=== PATIENT | male | born 1995 | race Caucasian/White ===

== ENCOUNTER 2016-10-24 16:32 | Emergency (ER) | payer OTHER ==
--- NOTE | 2016-10-24 17:32 | RAD ---
INDICATION: Left index finger amputation. TECHNIQUE: 3 views of the left index finger were obtained. FINDINGS: There is extensive soft tissue swelling and soft tissue defects present adjacent to the distal phalanx. No fracture is seen. Joint spaces appear maintained. IMPRESSION: EXTENSIVE SOFT TISSUE INJURY, NO FRACTURE IS SEEN.
--- NOTE | 2016-10-24 17:46 | ED ---
Laceration/Wound HPI - HPI Summary HPI Summary: 21M presents with left finger avulsion s/p cutting it with a knife today at work. He bought the part of his finger in a bag with wet gauze. The area is actively bleeding. He denies any decrease in ROM. His tetanus was within the last 5 years. He is right handed. - History of Current Complaint Stated Complaint: LT FINGER LAC Time Seen by Provider: 10/24/16 17:11 Pain Intensity: 8 - Additional Pertinent History Primary Care Physician: AMANDA - Allergy/Home Medications Allergies/Adverse Reactions: Allergies Allergy/AdvReac Type Severity Reaction Status Date / Time Penicillins Allergy Hives Verified 07/08/16 02:51 PMH/Surg Hx/FS Hx/Imm Hx Endocrine/Hematology History: Reports: Other Endocrine/Hematological Disorders - babesiosis Denies: Hx Diabetes Cardiovascular History: Denies: Hx Hypertension History: Denies: Hx Renal Disease Musculoskeletal History: Reports: Hx Orthopedic Injury - Left hand fx in 2010 - Surgical History Surgery Procedure, Year, and Place: appendectomy age 7 Infectious Disease History: No Infectious Disease History: Denies: Hx Clostridium Difficile, Hx Hepatitis, Hx Human Immunodeficiency Virus (HIV), Hx of Known/Suspected MRSA, Hx Shingles, Hx Tuberculosis, Hx Known/ Suspected VRE, Hx Known/Suspected VRSA, History Other Infectious Disease, Traveled Outside the [place] in Last 30 Days - Family History Known Family History: Negative: Cardiac Disease, Hypertension, Diabetes - Social History Alcohol Use: None Substance Use Type: Reports: None Substance Use Comment - Amount & Last Used: Drug [facility] Smoking Status (MU): Heavy Every Day Tobacco Smoker Review of Systems Negative: Fever Negative: Chest Pain Negative: Shortness Of Breath Positive: Other - avulsion of left index finger All Other Systems Reviewed And Are Negative: Yes Physical Exam Triage Information Reviewed: Yes Vital Signs On Initial Exam: Initial Vitals Temp Pulse Resp BP Pulse Ox 98.2 F 81 20 145/78 98 10/24/16 16:34 10/24/16 16:34 10/24/16 16:34 10/24/16 16:34 10/24/16 16:34 Vital Signs Reviewed: Yes Appearance: Positive: Well-Appearing Skin: Positive: Warm, Dry, Other - 3 cm by 2 cm avulsion involving distal tip of left index finger and distal part of nail that is actively bleeding, no exposed bone noted Head/Face: Positive: Normal Head/Face Inspection Eyes: Positive: Normal, Conjunctiva Clear ENT: Positive: Normal ENT inspection, Pharynx normal, TMs normal Respiratory/Lung Sounds: Positive: Clear to Auscultation, Breath Sounds Present Cardiovascular: Positive: Normal, RRR Musculoskeletal: Positive: Strength/ROM Intact - of left index finger, Other - good pulse Procedures - Laceration/Wound Repair 1 Location: Other - avulsion of left index finger Description: Irregular Anesthesia: Local, 1.0% Length, Depth and Shape: 2 by 3cm avulsion of left index finger reapproximated the avulsion piece of skin and reattached with chromic gut Betadine Prep?: Yes Irrigated w/ Saline (ccs): 200 Laceration/Wound Explored: clean, no foreign body removed Closure: Single Layer Debridement: minimal Suture Type: Chromic Number of Sutures: 8 Layer Closure?: No Sterile Dressing Applied?: No - pressure dressing applied Diagnostics - Vital Signs Vital Signs Temp Pulse Resp BP Pulse Ox 10/24/16 16:34 98.2 F 81 20 145/78 98 - Laboratory Lab Statement: Any lab studies that have been ordered have been reviewed, and results considered in the medical decision making process. - Radiology finger Xray Interpretation: No Acute Changes - FINDINGS: There is extensive soft tissue swelling and soft tissue defects present adjacent to the distal phalanx. No fracture is seen. Joint spaces appear maintained. IMPRESSION: EXTENSIVE SOFT TISSUE INJURY, NO FRACTURE IS SEEN. Radiology Interpretation Completed By: Radiologist Laceration Repair Course/Dx - Course Course Of Treatment: 21M presents with left index finger avulsion and he brought the piece with him. discussed with dr black and will try and reattach it to provide a protect barrier. 2 by 3cm avulsion of left index finger reapproximated the avulsion piece of skin and reattached with chromic gut 8 sutures, warned that might not take and to follow up with PCP in 7 days, placed on bactrim due to PCN allergy and replacing avulsed part of finger, patient agrees with plan - Differential Dx Differental Diagnoses: Abrasion, Avulsion, Laceration - Clinical Impression Provider Diagnoses: avulsion left index finger Discharge - Discharge Plan Condition: Good Disposition: HOME Prescriptions: Sulfamethox/Trimethoprim DS* [Bactrim DS 800/160 TAB*] 1 tab PO BID #20 tab Patient Education Materials: Care For Your Absorbable Stitches (ED) Referrals: Naresh Vargas MD [Primary Care Provider] - Additional Instructions: Take antibiotic twice a day for 10 days Take Tylenol or ibuprofen every 6 hours for pain Keep compression dressing on area for 48 hours Keep area covered Stitches will dissolve on their own, area might not take Follow up with primary within 7 days Return to ED if develop signs of infection such as fever, spreading redness, or any new or worsening symptoms Images - Images Hands: 1 - avuslion of left index finger
[2016-10-24 19:27] VITALS: BP 136/78
== END 2016-10-24 19:27 | disposition home or self-care (01) ==
LOC: ED 16:32
DX: S61.211A Laceration without foreign body of left index finger without damage to nail, initial encounter (principal); W26.0XXA Contact with knife, initial encounter; Y93.9 Activity, unspecified; Y92.9 Unspecified place or not applicable; Y99.9 Unspecified external cause status
CPT/HCPCS: 12002; 73140; 99281

== ENCOUNTER → 2017-04-17 14:55 | Emergency (ER) | payer OTHER ==
[2017-04-17 15:01] VITALS: BP 136/93
[2017-04-17 15:39] LABS: Urine Bilirubin Negative (Negative); Urine Glucose Negative (Negative); Urine Nitrite Negative (Negative)
--- NOTE | 2017-04-17 16:07 | RAD ---
Indication: 26 hours LEFT testicular pain. Comparison: No relevant prior exams available on the [facility] PACS for comparison. Technique: Scrotal ultrasound. Report: Normal echotexture 4.4 x 2.6 x 3.3 cm RIGHT testicle and 4.1 x 2.3 x 3.1 cm LEFT testicle. Normal range testicular vascularity bilaterally. No focal intratesticular lesions evident. Mildly hyperemic 1.1 x 1.3 cm RIGHT epididymis head and 1.0 x 1.8 cm LEFT epididymis head with both epididymal heads demonstrating mild hyperemia. Negative for significant hydroceles. No varicoceles visualized. IMPRESSION: 1. No evidence for testicular torsion, orchitis, or presence of a focal intratesticular lesion. 2. Mildly hyperemic bilateral epididymal heads which may reflect epididymitis.
--- NOTE | 2017-04-17 17:45 | ED ---
Ayaan Valdes Auryana, scribed for Darell Gonsalez MD on 04/17/17 at 1537 . GI/ HPI - HPI Summary HPI Summary: 22 year old male presents with left testicular pain starting yesterday morning s /p sexual intercourse. The patient reports that the pain is intermittent and occasionally radiates up the left groin. At its worst, the pain is an 8/10. He also reports nausea but denies any abdominal pain or any burning with urination. He was seen at [facility] and referred the the ED to r/o torsion. PMHx is significant for babesiosis. - History of Current Complaint Chief Complaint: EDUrogenitalProblems Time Seen by Provider: 04/17/17 15:23 Stated Complaint: POSSIBLE TESTICULAR TORSION/SENT BY CC Hx Obtained From: Patient Onset/Duration: Started Days Ago - yesterday afternoon, Still Present Timing: Intermittent Severity: Moderate Current Severity: Moderate Pain Intensity: 8 - reports intermittent episodes Additional Locations for Males: Testicles - left Associated Signs and Symptoms: Positive: Nausea. Negative: Abdominal Pain, UTI Symptoms Additional Signs & Symptoms: Negative: Penile Discharge - Additional Pertinent History Primary Care Physician: [id number] - Allergy/Home Medications Allergies/Adverse Reactions: Allergies Allergy/AdvReac Type Severity Reaction Status Date / Time Penicillins Allergy Hives Verified 07/08/16 02:51 PMH/Surg Hx/FS Hx/Imm Hx Endocrine/Hematology History: Reports: Other Endocrine/Hematological Disorders - babesiosis Denies: Hx Diabetes Cardiovascular History: Denies: Hx Hypertension History: Denies: Hx Renal Disease Musculoskeletal History: Reports: Hx Orthopedic Injury - Left hand fx in 2010 - Surgical History Surgery Procedure, Year, and Place: appendectomy age 7 Infectious Disease History: No Infectious Disease History: Denies: Hx Clostridium Difficile, Hx Hepatitis, Hx Human Immunodeficiency Virus (HIV), Hx of Known/Suspected MRSA, Hx Shingles, Hx Tuberculosis, Hx Known/ Suspected VRE, Hx Known/Suspected VRSA, History Other Infectious Disease, Traveled Outside the [place] in Last 30 Days - Family History Known Family History: Negative: Cardiac Disease, Hypertension, Diabetes - Social History Alcohol Use: None Substance Use Type: Reports: None Substance Use Comment - Amount & Last Used: Drug Treatment Court Smoking Status (MU): Heavy Every Day Tobacco Smoker Review of Systems Constitutional: Negative Eyes: Negative ENT: Negative Cardiovascular: Negative Respiratory: Negative Positive: Nausea. Negative: Abdominal Pain Positive: pain - left testicular pain occasionally radiates up to the left groin . Negative: burning Musculoskeletal: Negative Skin: Negative Neurological: Negative Psychological: Normal All Other Systems Reviewed And Are Negative: Yes Physical Exam - Summary Physical Exam Summary: General: well-appearing, no pain distress Skin: warm, color reflects adequate perfusion, dry Head: normal Eyes: EOMI, KAYLIE ENT: normal Neck: supple, nontender Respiratory: CTA, breath sounds present Cardiovascular: RRR Abdomen: soft, nontender Bowel: present Musculoskeletal: normal, strength/ROM intact Neurological: normal, sensory/motor intact, A&O x3 Psychological: affect/mood appropriate : No discharge, minimal tenderness in the left inguinal area. Right testicle - normal axis, non-tender, no swelling. Left testicle - normal axis, minimal tenderness over the epididymis, no swelling. Triage Information Reviewed: Yes Vital Signs On Initial Exam: Initial Vitals Temp Pulse Resp BP Pulse Ox 98.3 F 76 20 136/93 98 04/17/17 14:59 04/17/17 14:59 04/17/17 14:59 04/17/17 14:59 04/17/17 14:59 Vital Signs Reviewed: Yes - Abbie Coma Scale Coma Scale Total: 15 Diagnostics - Vital Signs Vital Signs Temp Pulse Resp BP Pulse Ox 04/17/17 15:18 98.3 F 76 20 136/93 98 04/17/17 14:59 98.3 F 76 20 136/93 98 - Laboratory Lab Results: Lab Results 04/17/17 Range/Units 15:30 Urine Color Yellow Urine Appearance Clear Urine pH 5.0 (5-9) Ur Specific [place] 1.011 (1.010-1.030) Urine Protein Negative (Negative) Urine Ketones Negative (Negative) Urine Blood Negative (Negative) Urine Nitrate Negative (Negative) Urine Bilirubin Negative (Negative) Urine Urobilinogen Negative (Negative) Ur Leukocyte Esterase Negative (Negative) Urine Glucose Negative (Negative) Lab Statement: Any lab studies that have been ordered have been reviewed, and results considered in the medical decision making process. - Additional Comments Diagnostic Additional Comments: US TESTICULAR IMPRESSION: 1. No evidence for testicular torsion, orchitis, or presence of a focal intratesticular lesion. 2. Mildly hyperemic bilateral epididymal heads which may reflect epididymitis. Re-Evaluation - Re-Evaluation First Eval Re-Evaluation Time: 17:31 - discussed UA, and US GIGU Course/Dx - Course Course Of Treatment: NO CRITICAL CARE TIME. PATIENT DENIES C/O STI. WILL TREAT WITH SCROTAL SUPPORT, NSAIDS AND ICE PRN. GC/CHALMYDIA PENDING. - Diagnoses Provider Diagnoses: Bilateral epididymitis, Testicular pain Discharge - Discharge Plan Condition: Stable Disposition: HOME Patient Education Materials: Epididymitis (ED) Referrals: Naresh Vargas MD [Primary Care Provider] - Additional Instructions: FOLLOW UP WITH YOUR DOCTOR. TAKE IBUPROFEN 600MG EVERY 6 HOURS NEEDED. RETURN TO THE EMERGENCY DEPARTMENT FOR ANY WORSENING OF YOUR CONDITION; PAIN, FEVER, YOU FEEL ILL, BURNING WITH URINATION OR QUESTIONS OR CONCERNS. The documentation as recorded by the Ayaan rene Auryana accurately reflects the service I personally performed and the decisions made by me, Darell Gonsalez MD.
== END | disposition home or self-care (01) ==
LOC: ED 14:55
DX: N50.812 Left testicular pain (principal); N45.1 Epididymitis; R11.0 Nausea; F17.210 Nicotine dependence, cigarettes, uncomplicated
CPT/HCPCS: 76870; 81003; 87491; 87591; 99282